=== PATIENT | female | born 1990 | race Caucasian/White ===

== ENCOUNTER 2020-07-30 14:34 | Emergency (ER) | payer OTHER, SELFPAY ==
[2020-07-30 14:57] VITALS: BP 131/89; PULSE 102; RESP 20; TEMP 36.7; O2SAT 100
--- NOTE | 2020-07-30 15:28 | ED.GENADULT ---
HPI - General Adult General Chief complaint: Upper Respiratory Infection Stated complaint: sinus congestion Time Seen by Provider: 07/30/20 15:18 Source: patient and RN notes reviewed Mode of arrival: ambulatory Limitations: no limitations History of Present Illness HPI narrative: 30-year-old male presents with complaints of upper respiratory infection, facial congestion, and facial pain for the past 7 days. Symptoms improved for 2-3 days and flared up over the pass 24 hours with increase congestion and bilateral otalgia. [place] cold and flu today with little relief. History of Allergies and take Singulair daily. No facial swelling. Denies cough. Nasal congestion and rhinorrhea. No chest pain or shortness of breath. No exacerbating factors. Denies fever or chills. Denies nausea, vomiting, and abdominal pain. Tolerating po intake well. LMP 8 days ago. Remains active. The patient reports she have not been diagnosed with COVID-19. The patient reports she is not waiting for the results of a COVID-19 lab test. The patient reports she do not have fever, chills, weakness, or fatigue. The patient reports she do not have a new or worsening cough or shortness of breath. Denies chest pain. The patient reports she do not have any loss of taste or diarrhea. Denies recent traveling. Denies concerns for COVID-19 or exposures been home with limited outdoor exposure except for essential household needs, work, and return home. At this time, patient is not suspected of having COVID-19. Some parts of this dictation were generated by voice recognition software and may contain typographical and/or grammatical inaccuracies. Related Data Home Medications Medication Instructions Recorded Confirmed drospirenone-ethinyl estradiol 1 tablet PO DAILY 07/30/20 07/30/20 [Ale] montelukast 10 mg PO DAILY 07/30/20 07/30/20 Allergies Allergy/AdvReac Type Severity Reaction Status Date / Time No Known Allergies Allergy Verified 07/30/20 14:56 Review of Systems Review of Systems: Narrative: CONSTITUTIONAL: Denies fever, chills, sweats. EYES: Denies visual changes, redness, discharge. ENT: Complains of rhinorrhea, congestion, sore throat, otalgia. CARDIOVASCULAR: Denies chest pain, palpitations, edema. RESPIRATORY: Denies dyspnea, wheezing, cough. GASTROINTESTINAL: Denies abdominal pain, nausea, vomiting, diarrhea. GENITOURINARY: Denies dysuria, hematuria, abnormal discharge. SKIN: Denies rash or itching. MUSCULOSKELETAL: Denies acute back pain, joint pain, or myalgia. NEUROLOGIC: Denies numbness or focal weakness. PSYCHIATRIC: Denies anxiety or depression. All systems reviewed & are unremarkable except as noted in HPI and below. [facility] Past Medical History Medical History (Updated 07/31/20 @ 11:46 by FRANCHESCA Morrison) Allergies Hypercholesteremia Right shoulder pain Surgical History Surgical History (Updated 07/31/20 @ 11:46 by FRANCHESCA Morrison) History of arthroscopic surgery of shoulder RT History of exploratory laparotomy Family History Family History (Updated 07/30/20 @ 17:57 by FRANCHESCA Morrison) Father Hypertension Mother Alive and well Social History Social History (Updated 07/30/20 @ 18:08 by FRANCHESCA Morrison) Smoking status: Never smoker Tobacco type: cigarettes Second hand tobacco smoke exposure: No Alcohol intake: current Substance use: never Living arrangements: with family Occupation/Education: occupation Gender identity (if verbalized by the patient): Female Comments At time of signature, agree with nurse past medical, surgical, social, and family history. There is relevant patient's past medical history pertinent to the presenting complaint, no relevant family history pertinent to the presenting complaint. Exam Narrative: Exam Narrative: GENERAL: This is a well-nourished, well-developed patient, in no apparent distress. Talks in full s
== END 2020-07-30 15:45 | disposition home or self-care (01) ==
PROVIDERS: Emergency Provider Nurse Practitioner Family
DX: J01.90 Acute sinusitis, unspecified (principal); H66.92 Otitis media, unspecified, left ear; E78.00 Pure hypercholesterolemia, unspecified
CPT/HCPCS: 87081; 87804; 87880; 99203; G0463

== ENCOUNTER 2020-07-31 06:59 | Outpatient (NON) | payer OTHER, SELFPAY ==
[2020-07-31 18:17] LABS: SARS-CoV-2 RNA PCR Negative
== END 2020-07-31 07:00 ==
PROVIDERS: Visit Provider Nurse Practitioner Family
DX: Z20.828 Contact with and (suspected) exposure to other viral communicable diseases (principal); J01.90 Acute sinusitis, unspecified
CPT/HCPCS: 87635; C9803; U0003

== ENCOUNTER 2021-03-02 10:33 | Emergency (ER) | payer OTHER, SELFPAY ==
[2021-03-02 10:35] VITALS: BP 132/81; PULSE 99; RESP 16; TEMP 36.6; O2SAT 98
--- NOTE | 2021-03-02 11:06 | ED.URI ---
HPI - URI/Sore Throat General Chief Complaint: Upper Respiratory Infection Stated Complaint: sinus and ear pain Time Seen by Provider: 03/02/21 11:06 Source: patient, RN notes reviewed and old records reviewed Mode of arrival: ambulatory Limitations: no limitations History of Present Illness HPI Narrative: 31-year-old female who presents to [facility] with complaints of 1-1/2-week duration of sinus pressure. bilateral ear pain,yellow nasal drainage,and cough. Patient states that she has been taking singulair as prescribed, and also [place] cold and sinus medication, Flonase, and Claritin.. She states that she has history of seasonal allergies and also sinus infections. She reportsthat she has had no known fevers but has experienced some chills, denies any shortness of breath or any wheezing with respirations even and nonlabored at rest. MD elicited complaint: cough, rhinorrhea, nasal congestion, sinus pain and other (ear pain) Pertinent past history: sinusitis Onset (ago): week(s) (1 1/2 weeks) Consistency: progressively worsening Severity: moderate Pain scale (0-10): 4 Description of mucous: yellow Able to tolerate fluids by mouth: Yes Treatments prior to arrival: cold medicine and other (singulair) Related Data Home Medications Medication Instructions Recorded Confirmed drospirenone-ethinyl estradiol 1 tablet PO DAILY 07/30/20 03/02/21 [Ale] montelukast 10 mg PO DAILY 07/30/20 03/02/21 ascorbate calcium (vitamin C) 500 mg PO DAILY 03/02/21 03/02/21 calcium citrate 150 mg PO DAILY 03/02/21 03/02/21 glucos sul [id number] 1 cap PO DAILY 03/02/21 03/02/21 [Glucosamine Chondroitin] multivitamin [One A Day Vitamin] 1 tablet PO DAILY 03/02/21 03/02/21 Allergies Allergy/AdvReac Type Severity Reaction Status Date / Time No Known Allergies Allergy Verified 03/02/21 10:41 Review of Systems Review of Systems: Narrative: CONSTITUTIONAL: Unknown if fever,positive chills, or sweats. EYES: Denies visual changes, redness, or discharge. ENT: Positive rhinorrhea, congestion,no sore throat, positive for bilateral otalgia. CARDIOVASCULAR: Denies chest pain, palpitations, or edema. RESPIRATORY: Positive for cough no dyspnea. GASTROINTESTINAL: Denies abdominal pain, nausea, vomiting, or diarrhea. GENITOURINARY: Denies dysuria or hematuria. SKIN: Denies rash or itching. MUSCULOSKELETAL: Denies back pain, no joint pain, or myalgia. NEUROLOGIC:positive frontal headache,no numbness, or weakness. PSYCHIATRIC: Denies anxiety or depression. All systems reviewed & are unremarkable except as noted in HPI and below PMFSH Past Medical History Medical History (Updated 03/04/21 @ 20:30 by Leslie Aviles NP) Allergies Right shoulder pain Sinusitis Surgical History Surgical History (Updated 03/04/21 @ 20:18 by Leslie Aviles NP) History of arthroscopic surgery of shoulder RT History of exploratory laparotomy S/P wisdom tooth extraction Family History Family History (Updated 03/04/21 @ 20:27 by Leslie Aviles NP) Father Hypertension Malignant neoplasm of prostate Heart disease Mother Alive and well Breast cancer Grandparent Hypertension Heart disease Social History Social History Smoking status: Never smoker Tobacco type: cigarettes Second hand tobacco smoke exposure: No Alcohol intake: current Substance use: never Gender identity (if verbalized by the patient): Female Comments At time of signature agree with nursing documentation of past social, surgical, medical and family history. There is no relevant family history pertinent to presenting complaint. Exam Narrative: Exam Narrative: GENERAL: Well-appearing, well-nourished, and in no acute distress. HEAD: Normocephalic, atraumatic. EYES: PERRLA and EOMI. ENT: Nares red and swollen with yellow rhinorrhea no epistaxis. Mucous membranes moist.TM's normal with dull light
== END 2021-03-02 11:20 | disposition home or self-care (01) ==
PROVIDERS: Emergency Provider Registered Nurse
DX: J01.40 Acute pansinusitis, unspecified (principal)
CPT/HCPCS: 99213; G0463

== ENCOUNTER 2024-09-22 10:21 | Emergency (ER) | payer OTHER, SELFPAY ==
--- NOTE | 2024-09-22 10:33 | ED.URI ---
HPI - URI/Sore Throat General Chief Complaint: Upper Respiratory Infection Stated Complaint: SINUS/SORE THROAT/SWELLING History of Present Illness HPI Narrative: 34-year-old female presented for complaint of nasal congestion and drainage, sore throat and cough for over 10 days. Denies difficulty maintaining secretions. Denies shortness of breath, wheezing, nausea, vomiting, diarrhea or lethargy. Taking NyQuil in addition to her daily antihistamines and nasal spray. Related Data Home Medications Medication Instructions Recorded Confirmed drospirenone 3 mg-ethinyl 1 tablet PO DAILY 07/30/20 09/22/24 estradiol 0.03 mg tablet (Ale) montelukast 10 mg tablet 10 mg PO DAILY 07/30/20 09/22/24 calcium citrate 150 mg capsule 150 mg PO DAILY 03/02/21 09/22/24 multivitamin 1 tablet PO DAILY 03/02/21 09/22/24 dextroamphetamine-amphetamine ER 10 mg PO DIRECTED 09/22/24 09/22/24 10 mg 24hr capsule,extend release Allergies Allergy/AdvReac Type Severity Reaction Status Date / Time No Known Allergies Allergy Verified 09/22/24 10:28 Review of Systems Review of Systems: CONSTITUTIONAL: Denies body aches, fever, chills, or sweats. EYES: Denies visual changes, redness, or discharge. ENT: reports rhinorrhea, congestion, sore throat CARDIOVASCULAR: Denies chest pain, palpitations, or edema. RESPIRATORY: reports cough Denies dyspnea. GASTROINTESTINAL: Denies abdominal pain, nausea, vomiting, or diarrhea. SKIN: Denies rash NEUROLOGIC: Denies headache PMFSH Past Medical History Medical History Allergies Right shoulder pain Sinusitis Surgical History Surgical History History of arthroscopic surgery of shoulder RT History of exploratory laparotomy S/P wisdom tooth extraction Family History Family History Father Hypertension Malignant neoplasm of prostate Heart disease Mother Alive and well Breast cancer Grandparent Hypertension Heart disease Social History Social History Smoking status: Never smoker Tobacco type: cigarettes Second hand tobacco smoke exposure: No Alcohol intake: current Substance use: never Living arrangements: with family Occupation/Education: occupation Gender identity (if verbalized by the patient): Female Exam Narrative: GENERAL: mildly Ill-appearing, no acute distress. EYES: conjunctivae clear ENT: Mucous membranes moist. TMs pearly cedillo with normal light reflex and clear effusion bilaterally; no tragal tenderness. Oropharynx not erythematous without lesions. Tonsils enlarged 1+ and without exudate. No drooling, no hoarseness, no trismus, uvula midline. No tripod positioning, hot potato voice, or soft palate swelling. NECK: Supple. No lymphadenopathy CHEST: Clear to auscultation, breath sounds equal. No respiratory distress, speaks in full sentences. HEART: Regular rate and rhythm. No murmur heard. SKIN: Warm, dry, no rash. NEURO: Alert and oriented x3. Course Course Emergency Course: Patient is aware of diagnosis, understands and agrees to treatment plan. Anticipatory guidance given. Patient agrees to follow-up as directed and is aware of reasons to seek care at the emergency department. Portions of this record may have been created with voice recognition software Level of Care: Express Care Visit MDM - URI/Sore Throat MDM Narrative Medical decision making narrative: neg strep result reviewed with pt. Treat for sinusitis Advise supportive treatments. Patient is appropriate for outpatient treatment and follow-up. Differential Diagnosis Differential diagnosis: Likely upper respiratory infection, viral infection and pharyngitis Discharge Plan Discharge Clinical Impression: Sinusitis Patient Disposition: Home, Self-Care Condition: Stable Instructions: Antibiotic Form, Sinusitis (ED) Additional Instructions: Rapid strep swab was negative today You will be notified in a few days if the culture comes back positive for strep if symptoms are due to a viral illness, it is not treated with antibiotics. Viral symptoms can be present for up to 10-14 days. Recommendations: Flonase spray and Zyrtec for sinus congestion Cough syrup may cause drowsiness; avoid driving or take it at night time. Tylenol every 8 hours as needed for pain/fever Soft foods, cool liquids, warm tea. Gargle with warm saltwater twice a day. Chloraseptic spray and throat lozenges. Rest and stay hydrated. --Follow up with your PCP --Go to the ER immediately if you cannot swallow your saliva, trouble breathing/wheezing, throat swelling, pain is persistent and severe Prescriptions: New amoxicillin-pot clavulanate 875-125 mg tablet 1 tablet PO Q12H 7 Days Qty: 14 0RF No Action multivitamin [One A Day Vitamin] Tablet 1 tablet PO DAILY calcium citrate 150 mg Capsule 150 mg PO DAILY montelukast 10 mg Tablet 10 mg PO DAILY drospirenone-ethinyl estradiol [Ale] 3-0.03 mg Tablet 1 tablet PO DAILY fluticasone propionate [Allergy Relief (fluticasone)] 50 mcg/actuation spray,suspension 1 spray NASAL BID Qty: 16 0RF Rx Instructions: administer into each nostril loratadine [Claritin] 10 mg tablet 10 mg PO DAILY 60 Days Qty: 60 0RF dextroamphetamine-amphetamine 10 mg capsule,extended release 24hr 10 mg PO DIRECTED Follow-up/Referrals: Naty,Reynaldo [Other]
[2024-09-22 10:38] VITALS: BP 123/89; PULSE 101; RESP 16; TEMP 36.6; O2SAT 99
[2024-09-22 10:54] LABS: EDSTREPNEGPOS1 Negative (Negative)
== END 2024-09-22 10:59 | disposition home or self-care (01) ==
PROVIDERS: Emergency Provider Nurse Practitioner Family
DX: J32.9 Chronic sinusitis, unspecified (principal)
CPT/HCPCS: 87081; 87880; 99213; G0463

== ENCOUNTER 2025-07-17 10:01 | Emergency (ER) | payer OTHER, SELFPAY ==
[2025-07-17 10:05] VITALS: BP 147/99; PULSE 99; RESP 18; TEMP 36.1; O2SAT 98
--- OUTSIDE RECORDS SUMMARY | 2025-07-17 10:05 | XMS_ITS | Encounter Summary ---
Author Organization [facility] Address [address] [place] [address] Care Team Providers Care Planning Official Name Role Phone Eren Castillo MD Primary Care Provider [phone] Encounter Details Date Type Department Care Team (Late st Contact Info) Description 06/19/2004 Outpatient Historical [facility] Pediatrics [address] [place] [address] Eren Castillo MD [address] [facility] [address], [place] [address] Social History Tobacco Use Types Packs/Day Years Used Date Smoking Tobacco: Never Assessed Comments Unknown Sex and Gender Information Value Date Recorded Sex Assigned at Not on file 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
--- OUTSIDE RECORDS SUMMARY | 2025-07-17 10:05 | XMS_ITS | Encounter Summary ---
Author Organization [facility] Address [address] [place] [address] Care Team Providers Care Director Of Oncology Name Role Phone Eren Castillo MD Primary Care Provider [phone] Encounter Details Date Type Department Care Team (Late st Contact Info) Description 09/17/2003 Outpatient Historical [facility] Pediatrics [address] [place] [address] Gautam Evans MD [address] [place] [address] Social History Tobacco Use Types Packs/Day Years Used Date Smoking Tobacco: Never Assessed Comments Unknown Sex and Gender Information Value Date Recorded Sex Assigned at Not on file 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
--- OUTSIDE RECORDS SUMMARY | 2025-07-17 10:05 | XMS_ITS | Encounter Summary ---
Author Organization [facility] Address [address] [place] [address] Care Team Providers Care Oil Heater Installer Name Role Phone Eren Castillo MD Primary Care Provider [phone] Encounter Details Date Type Department Care Team (Late st Contact Info) Description 12/18/2006 Outpatient Historical [facility] Pediatrics [address] [place] [address] Eren Castillo MD [address] [facility] [address], [place] [address] Social History Tobacco Use Types Packs/Day Years Used Date Smoking Tobacco: Never Assessed Comments Unknown Sex and Gender Information Value Date Recorded Sex Assigned at Not on file 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
--- OUTSIDE RECORDS SUMMARY | 2025-07-17 10:05 | XMS_ITS | Encounter Summary ---
Author Organization [facility] Address [address] [place] [address] Care Team Providers Care Android Ios Developer Name Role Phone Eren Castillo MD Primary Care Provider [phone] Encounter Details Date Type Department Care Team (Late st Contact Info) Description 05/07/2001 Outpatient Historical [facility] Pediatrics [address] [place] [address] Gautam Evans MD [address] [place] [address] Social History Tobacco Use Types Packs/Day Years Used Date Smoking Tobacco: Never Assessed Comments Unknown Sex and Gender Information Value Date Recorded Sex Assigned at Not on file 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
--- OUTSIDE RECORDS SUMMARY | 2025-07-17 10:05 | XMS_ITS | Encounter Summary ---
Author Organization [facility] Address [address] [place] [address] Care Team Providers Care Silk Screen Printer Name Role Phone Eren Castillo MD Primary Care Provider [phone] Encounter Details Date Type Department Care Team (Late st Contact Info) Description 06/11/2005 Outpatient Historical [facility] Pediatrics [address] [place] [address] Eren Castillo MD [address] [facility] [address] [address] Social History Tobacco Use Types Packs/Day Years Used Date Smoking Tobacco: Never Assessed Comments Unknown Sex and Gender Information Value Date Recorded Sex Assigned at Not on file 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
--- OUTSIDE RECORDS SUMMARY | 2025-07-17 10:05 | XMS_ITS | Encounter Summary ---
Author Organization [facility] Address [address] [place] [address] Care Team Providers Care Gum Scoring Machine Operator Name Role Phone Eren Castillo MD Primary Care Provider [phone] Encounter Details Date Type Department Care Team (Late st Contact Info) Description 10/09/2006 Outpatient Historical [facility] Pediatrics [address] [place] [address] Eren Castillo MD [address] 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 [address] [place] [address] PCP - General 04/27/07 documented as of this encounter
--- OUTSIDE RECORDS SUMMARY | 2025-07-17 10:05 | XMS_ITS | Encounter Summary ---
Author Organization [facility] Address [address] [place] [address] Care Team Providers Care Dipper Fish Name Role Phone Eren Castillo MD Primary Care Provider [phone] Encounter Details Date Type Department Care Team (Late st Contact Info) Description 05/01/2007 Outpatient Historical [facility] Pediatrics [address] [place] [address] Eren Castillo MD [address] [facility] [address] [address] Social History Tobacco Use Types Packs/Day Years Used Date Smoking Tobacco: Never Assessed Comments Unknown Sex and Gender Information Value Date Recorded Sex Assigned at Not on file 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
--- OUTSIDE RECORDS SUMMARY | 2025-07-17 10:05 | XMS_ITS | Encounter Summary ---
Author Organization [facility] Address [address] [place] [address] Care Team Providers Care Jute Bag Cutting Machine Operator Name Role Phone Eren Castillo MD Primary Care Provider [phone] Encounter Details Date Type Department Care Team (Late st Contact Info) Description 04/27/[address] 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
--- OUTSIDE RECORDS SUMMARY | 2025-07-17 10:05 | XMS_ITS | Encounter Summary ---
Author Organization [facility] Health Address [address] [place] [address] Care Team Providers Care Bridge Painter Name Role Phone Unavailable Primary Care Provider Unavailabl e Prior Encounters Date Type Department Care Team Description 05/31/2025 10:00 AM [facility] Office Visit [facility] [address], [address] [place] [address] Kori Cedeño DDS [place] 05/20/2025 8:30 AM [facility] Office Visit [facility] [address], [address] [place] [phone] Logan Jauregui, DMD 04/21/2025 10:45 AM [facility] Office Visit [facility] [address], [address] [place] [phone] Logan Jauregui, DMD 04/14/2025 Travel 04/14/2025 11:00 AM [facility] Office Visit [facility] [address], [address] [place] [phone] Logan Jauregui, DMD 04/14/2025 8:00 AM [facility] Office Visit [facility] [address], [address] [place] [phone] Andrés Cosby DDS Encounter for dental examination and cleaning without abnormal findings (Primary Dx) 04/14/2025 8:00 AM [facility] Office Visit [facility] [address], [address] [place] [address] 01/12/2025 Travel 01/12/2025 5:00 PM MST Office Visit [facility] [address], [address] [place] [address] Darlin Caballero, [facility] 08/10/2024 3:30 PM MST Office Visit [facility] [address], [address] [place] [address] Elvia Xiao DDS Dental caries, unspecified (Primary Dx) 07/27/2024 9:00 AM [facility] Office Visit [facility] [address], [address] [place] [address] Elvia Xiao DDS Dental caries, unspecified (Primary Dx); Encounter for dental examination and cleaning without abnormal findings 07/27/2024 9:00 AM [facility] Office Visit [facility] [address], [address] [place] [address] Fabiana Varghese, [facility] 01/12/2024 Travel 01/12/2024 9:00 AM [facility] Office Visit [facility] [address], [address] [place] [address] Elvia Xiao DDS Encounter for dental examination and cleaning without abnormal findings (Primary Dx) 01/12/2024 8:00 AM MST Office Visit [facility] [address], [address] [place] [address] Fabiana Varghese, [facility] 07/14/2023 8:00 AM MST Office Visit [facility] [address], [address] [place] [address] Andrés Cosby DDS 07/14/2023 8:00 AM MST Office Visit [facility] [address], [address] [place] [address] Fabiana Varghese, [facility] 12/16/2022 Travel 12/16/2022 8:30 AM MST Office Visit [facility] [address], [address] [place] [address] Elvia Xiao, [facility] 12/16/2022 8:30 AM MST Office Visit [facility] [address], [address] [place] [address] Fabiana Varghese, [facility] 06/10/2022 Travel 06/10/2022 8:30 AM MST Office Visit [facility] [address], [address] [place] [address] Sagar Monreal, DD 06/10/2022 8:30 AM MST Office Visit [facility] [address], [address] [place] [address] Teresa Mariee, [facility] 12/10/2021 Travel 12/10/2021 8:30 AM MST Office Visit [facility] [address], [address] [place] [address] Sagar Monreal, [facility] 12/10/2021 8:00 AM MST Office Visit [facility] [address], [address] [place] [address] Darlin Caballero, [facility] 06/11/2021 Travel 06/11/2021 8:00 AM MST Office Visit [facility] [address], [address] [place] [address] Sagar Monreal, DD 06/11/2021 8:00 AM MST Office Visit [facility] [address], [address] [place] [address] Darlin Caballero, [facility] 12/11/2020 1:00 PM MST Office Visit [facility] [address], [address] [place] [address] Darlin Caballero, [facility] 12/11/2020 Travel 12/11/2020 12:00 PM [facility] Office Visit [facility] [address], [address] [place] [phone] Elvia Xiao DDS 11/08/2019 Converted CPS Chart Documents [facility] [address] [place] [id number] <No scans attached> 11/08/2019 Converted 13x Documents [facility] [address] [place] [id number] <No scans attached> 11/08/2019 Converted CPS Chart Documents [facility] [address], [address] [place] [phone] <No scans attached> 11/08/2019 Converted 13x Documents [facility] [address], [address] [place] [phone] <No scans attached> Last Filed Vital Signs Vital Sign Reading Time Taken Comments Blood Pressure 123/79 04/21/2025 10:44 AM [facility] Pulse 110 04/21/2025 10:44 AM [facility] Temperature 36.2 C (97.2 F) 12/10/2021 8:19 AM [facility] Respiratory Rate - - Oxygen Saturation - - Inhaled Oxygen Concentration - - Weight 113 kg (250 lb) 12/10/2021 8:19 AM [facility] Height 182.9 cm (6') 12/10/2021 8:19 AM [facility] Body Mass Index 33.91 12/10/2021 8:19 AM [facility] Plan of Treatment Upcoming Encounters Date Type Department Care Team (Late st Contact Info) Description 07/27/2025 9:00 AM [facility] Office Visit [facility] [address], [address] [place] [address] Kori Cedeño DDS [place] [address] [place] [address] 08/18/2025 8:00 AM [facility] Office Visit [facility] [address], [address] [place] [address] Janis Louis Luisainge [place], [facility] [address] [facility] [address] [place] [address] Procedures Procedure Name Priority Date/Time Associated Diagnosis Comments ORAL HYGIENE INSTRUCTIONS Routine 2024 10:00 AM [facility] SPARK ADVANCED - DUAL ARCH Routine 05/31/2025 10:00 AM [facility] CASE PRESENTATION, DETAILED AND EXTENSIVE TREATMENT PLANNING Routine 05/31/2025 10:00 AM [facility] ORAL-B ESSENTIAL KIT Routine 05/31/2025 10:00 AM [facility] COMPREHENSIVE ORTHODONTIC TREATMENT OF THE ADULT DENTITION - 24M Routine 05/31/2025 10:00 AM [facility] 2D ORAL/FACIAL PHOTOGRAPHIC IMAGE OBTAINED INTRA-ORALLY OR EXTRA-ORALLY - INITIAL ORTHODONTIC VISIT Routine 05/31/2025 10:00 AM [facility] DIAGNOSTIC CASTS - INITIAL ORTHODONTIC VISIT Routine 05/31/2025 10:00 AM [facility] 2D CEPHALOMETRIC RADIOGRAPHIC IMAGE ACQUISITION, MEASUREMENT AND ANALYSIS - INITIAL ORTHODONTIC VISIT Routine 05/31/2025 10:00 AM [facility] PANORAMIC RADIOGRAPHIC IMAGE - INITIAL ORTHODONTIC VISIT Routine 05/31/2025 10:00 AM [facility] ORTHO CONSULT Routine 05/31/2025 10:00 AM [facility] RE-EVALUATION POST-OPERATIVE OFFICE VISIT Routine 05/20/2025 8:30 AM [facility] LIMITED ORAL EVALUATION - PROBLEM FOCUSED Routine 04/21/2025 10:45 AM [facility] 3 EXTRACTION, ERUPTED TOOTH REQUIRING REMOVAL OF BONE AND/OR SECTIONING OF TOOTH Routine 04/21/2025 10:45 AM [facility] 3 GUIDED TISSUE REGENERATION, NATURAL TEETH - RESORBABLE BARRIER, PER SITE Routine 04/21/2025 10:45 AM [facility] 3 BONE REPLACEMENT GRAFT FOR RIDGE PRESERVATION - PER SITE - MAXILLARY Routine 04/21/2025 10:45 AM [facility] PERIO CONSULT Routine 04/14/2025 11:00 AM [facility] CT IMAGE CAPTURE WITH FIELD OF VIEW OF BOTH JAWS; WITH OR WITHOUT CRANIUM Routine 04/14/2025 8:00 AM [facility] INTRAORAL PHOTO Routine 04/14/2025 8:00 AM [facility] INTRAORAL PHOTO Routine 04/14/2025 8:00 AM MST INTRAORAL PHOTO Routine 04/14/2025 8:00 AM [facility] INTRAORAL PHOTO Routine 04/14/2025 8:00 AM [facility] BITEWINGS - FOUR RADIOGRAPHIC IMAGES Routine 04/14/2025 8:00 AM [facility] PERIODIC ORAL EVALUATION - ESTABLISHED PATIENT Routine 04/14/2025 8:00 AM MST Encounter for dental examination and cleaning without abnormal findings ORAL HYGIENE INSTRUCTIONS Routine 2024 8:00 AM MST TOPICAL APPLICATION OF FLUORIDE VARNISH Routine 04/14/2025 8:00 AM MST GAYATRI DECON Routine 04/14/2025 8:00 AM MST PERIO MAINTENANCE Routine 04/14/2025 8:0 0 AM MST LR ANTIBACT IRR/QUAD Routine 04/14/2025 8:00 AM MST LL ANTIBACT IRR/QUAD Routine 04/14/2025 8:00 AM MST UR ANTIBACT IRR/QUAD Routine 04/14/2025 8:00 AM MST UL ANTIBACT IRR/QUAD Routine 04/14/2025 8:00 AM [facility] ORAL HYGIENE INSTRUCTIONS Routine 2024 5:00 PM MST TOPICAL APPLICATION OF FLUORIDE VARNISH Routine 01/12/2025 5:00 PM MST GAYATRI DECON Routine 01/12/2025 5:00 PM MST PERIO MAINTENANCE Routine 01/12/2025 5:0 0 PM MST LR ANTIBACT IRR/QUAD Routine 01/12/2025 5:00 PM MST UR ANTIBACT IRR/QUAD Routine 01/12/2025 5:00 PM MST UL ANTIBACT IRR/QUAD Routine 01/12/2025 5:00 PM MST LL ANTIBACT IRR/QUAD Routine 01/12/2025 5:00 PM MST 15 APPLICATION OF DESENSITIZING MEDICAMENT Routine 08/10/2024 3:30 PM MST 15 LO RESIN-BASED COMPOSITE - TWO SURFACES, POSTERIOR Routine 08/10/2024 3:30 PM MST Dental caries, unspecified 2 LO RESIN-BASED COMPOSITE - TWO SURFACES, POSTERIOR Routine 08/10/2024 3:30 PM MST Dental caries, unspecified 2 APPLICATION OF DESENSITIZING MEDICAMENT Routine 08/10/2024 3:30 PM MST INTRAORAL PHOTO Routine 07/27/2024 9:00 AM MST INTRAORAL PHOTO Routine 07/27/2024 9:00 AM MST INTRAORAL PHOTO Routine 07/27/2024 9:00 AM MST INTRAORAL PHOTO Routine 07/27/2024 9:00 AM [facility] BITEWINGS - FOUR RADIOGRAPHIC IMAGES Routine 07/27/2024 9:00 AM [facility] ADDITIONAL X-RAY Routine 07/27/2024 9:00 AM MST ADDITIONAL X-RAY Routine 07/27/2024 9:00 AM MST ADDITIONAL X-RAY Routine 07/27/2024 9:00 AM MST ADDITIONAL X-RAY Routine 07/27/2024 9:00 AM MST ADDITIONAL X-RAY Routine 07/27/2024 9:00 AM [facility] SINGLE X-RAY Routine 07/27/2024 9:00 AM [facility] PERIODIC ORAL EVALUATION - ESTABLISHED PATIENT Routine 07/27/2024 9:00 AM [facility] Encounter for dental examination and cleaning without abnormal findings ORAL HYGIENE INSTRUCTIONS Routine 2023 9:00 AM MST TOPICAL APPLICATION OF FLUORIDE VARNISH Routine 07/27/2024 9:00 AM MST GAYATRI DECON Routine 07/27/2024 9:00 AM MST PERIO MAINTENANCE Routine 07/27/2024 9:0 0 AM MST LR ANTIBACT IRR/QUAD Routine 07/27/2024 9:00 AM MST UR ANTIBACT IRR/QUAD Routine 07/27/2024 9:00 AM MST LL ANTIBACT IRR/QUAD Routine 07/27/2024 9:00 AM MST UL ANTIBACT IRR/QUAD Routine 07/27/2024 9:00 AM [facility] INTRAORAL PHOTO Routine 01/12/2024 9:00 AM MST INTRAORAL PHOTO Routine 01/12/2024 9:00 AM MST INTRAORAL PHOTO Routine 01/12/2024 9:00 AM MST INTRAORAL PHOTO Routine 01/12/2024 9:00 AM [facility] BITEWINGS - FOUR RADIOGRAPHIC IMAGES Routine 01/12/2024 9:00 AM [facility] PERIODIC ORAL EVALUATION - ESTABLISHED PATIENT Routine 01/12/2024 9:00 AM [facility] Encounter for dental examination and cleaning without abnormal findings ORAL HYGIENE INSTRUCTIONS Routine 2023 8:00 AM MST TOPICAL APPLICATION OF FLUORIDE VARNISH Routine 01/12/2024 8:00 AM MST GAYATRI DECON Routine 01/12/2024 8:00 AM MST LR ANTIBACT IRR/QUAD Routine 01/12/2024 8:00 AM MST PERIO MAINTENANCE Routine 01/12/2024 8:0 0 AM MST UR ANTIBACT IRR/QUAD Routine 01/12/2024 8:00 AM MST UL ANTIBACT IRR/QUAD Routine 01/12/2024 8:00 AM MST LL ANTIBACT IRR/QUAD Routine 01/12/2024 8:00 AM MST BITEWINGS - FOUR RADIOGRAPHIC IMAGES Routine 07/14/2023 8:00 AM MST ADDITIONAL X-RAY Routine 07/14/2023 8:00 AM MST ADDITIONAL X-RAY Routine 07/14/2023 8:00 AM MST ADDITIONAL X-RAY Routine 07/14/2023 8:00 AM MST ADDITIONAL X-RAY Routine 07/14/2023 8:00 AM MST ADDITIONAL X-RAY Routine 07/14/2023 8:00 AM [facility] SINGLE X-RAY Routine 07/14/2023 8:00 AM [facility] PERIODIC ORAL EVALUATION - ESTABLISHED PATIENT Routine 07/14/2023 8:00 AM [facility] ORAL HYGIENE INSTRUCTIONS Routine 2022 8:00 AM MST TOPICAL APPLICATION OF FLUORIDE VARNISH Routine 07/14/2023 8:00 AM MST PERIO MAINTENANCE Routine 07/14/2023 8:0 0 AM MST LR ANTIBACT IRR/QUAD Routine 07/14/2023 8:00 AM MST UR ANTIBACT IRR/QUAD Routine 07/14/2023 8:00 AM MST LL ANTIBACT IRR/QUAD Routine 07/14/2023 8:00 AM [facility] UL ANTIBACT IRR/QUAD Routine 07/14/2023 8:00 AM [facility] [place] [address] CAPTURE AND INTERPRETATION WITH FIELD OF VIEW OF BOTH JAWS; WITH OR WITHOUT CRANIUM Routine 12/16/2022 8:30 AM [facility] PANORAMIC RADIOGRAPHIC IMAGE Routine 12/16/2022 8:30 AM [facility] BITEWING - SINGLE RADIOGRAPHIC IMAGE Routine 12/16/2022 8:30 AM [facility] PERIODIC ORAL EVALUATION - ESTABLISHED PATIENT Routine 12/16/2022 8:30 AM MST ORAL HYGIENE INSTRUCTIONS Routine 2022 8:30 AM MST TOPICAL APPLICATION OF FLUORIDE VARNISH Routine 12/16/2022 8:30 AM MST PERIO MAINTENANCE Routine 12/16/2022 8:3 0 AM MST LR ANTIBACT IRR/QUAD Routine 12/16/2022 8:30 AM MST LL ANTIBACT IRR/QUAD Routine 12/16/2022 8:30 AM MST UR ANTIBACT IRR/QUAD Routine 12/16/2022 8:30 AM MST UL ANTIBACT IRR/QUAD Routine 12/16/2022 8:30 AM MST ORAL HYGIENE INSTRUCTIONS Routine 2021 8:30 AM MST TOPICAL APPLICATION OF FLUORIDE VARNISH Routine 06/10/2022 8:30 AM MST PERIO MAINTENANCE Routine 06/10/2022 8:3 0 AM MST LR ANTIBACT IRR/QUAD Routine 06/10/2022 8:30 AM MST UR ANTIBACT IRR/QUAD Routine 06/10/2022 8:30 AM MST LL ANTIBACT IRR/QUAD Routine 06/10/2022 8:30 AM MST UL ANTIBACT IRR/QUAD Routine 06/10/2022 8:30 AM MST 14 D ARESTIN Routine 06/10/2022 8:30 AM MST 3 D ARESTIN Routine 06/10/2022 8:30 AM MST INTRAORAL PHOTO Routine 06/10/2022 8:30 AM MST INTRAORAL PHOTO Routine 06/10/2022 8:30 AM MST INTRAORAL PHOTO Routine 06/10/2022 8:30 AM MST INTRAORAL PHOTO Routine 06/10/2022 8:30 AM MST BITEWINGS - FOUR RADIOGRAPHIC IMAGES Routine 06/10/2022 8:30 AM MST PERIODIC ORAL EVALUATION - ESTABLISHED PATIENT Routine 06/10/2022 8:30 AM MST ADDITIONAL X-RAY Routine 12/10/2021 8:30 AM MST PANORAMIC RADIOGRAPHIC IMAGE Routine 12/10/2021 8:30 AM MST INTRAORAL PHOTO Routine 12/10/2021 8:30 AM MST INTRAORAL PHOTO Routine 12/10/2021 8:30 AM MST INTRAORAL PHOTO Routine 12/10/2021 8:30 AM MST INTRAORAL PHOTO Routine 12/10/2021 8:30 AM MST BITEWINGS - FOUR RADIOGRAPHIC IMAGES Routine 12/10/2021 8:30 AM MST ADDITIONAL X-RAY Routine 12/10/2021 8:30 AM MST ADDITIONAL X-RAY Routine 12/10/2021 8:30 AM MST ADDITIONAL X-RAY Routine 12/10/2021 8:30 AM MST ADDITIONAL X-RAY Routine 12/10/2021 8:30 AM MST ADDITIONAL X-RAY Routine 12/10/2021 8:30 AM MST SINGLE X-RAY Routine 12/10/2021 8:30 AM MST PERIODIC ORAL EVALUATION - ESTABLISHED PATIENT Routine 12/10/2021 8:30 AM MST 18 M ARESTIN Routine 12/10/2021 8:00 AM MST 3 M ARESTIN Routine 12/10/2021 8:00 AM MST ORAL HYGIENE INSTRUCTIONS Routine 2021 8:00 AM MST TOPICAL APPLICATION OF FLUORIDE VARNISH Routine 12/10/2021 8:00 AM MST PERIO MAINTENANCE Routine 12/10/2021 8:0 0 AM MST LR ANTIBACT IRR/QUAD Routine 12/10/2021 8:00 AM MST UR ANTIBACT IRR/QUAD Routine 12/10/2021 8:00 AM MST LL ANTIBACT IRR/QUAD Routine 12/10/2021 8:00 AM MST UL ANTIBACT IRR/QUAD Routine 12/10/2021 8:00 AM MST 3 M ARESTIN Routine 06/11/2021 8:00 AM MST 15 D ARESTIN Routine 06/11/2021 8:00 AM MST ORAL HYGIENE INSTRUCTIONS Routine 2020 8:00 AM MST TOPICAL APPLICATION OF FLUORIDE VARNISH Routine 06/11/2021 8:00 AM MST PERIO MAINTENANCE Routine 06/11/2021 8:0 0 AM MST UR ANTIBACT IRR/QUAD Routine 06/11/2021 8:00 AM MST LR ANTIBACT IRR/QUAD Routine 06/11/2021 8:00 AM MST LL ANTIBACT IRR/QUAD Routine 06/11/2021 8:00 AM MST UL ANTIBACT IRR/QUAD Routine 06/11/2021 8:00 AM MST BITEWINGS - FOUR RADIOGRAPHIC IMAGES Routine 06/11/2021 8:00 AM MST PERIODIC ORAL EVALUATION - ESTABLISHED PATIENT Routine 06/11/2021 8:00 AM MST LL ANTIBACT IRR/QUAD Routine 12/11/2020 1:00 PM MST UL ANTIBACT IRR/QUAD Routine 12/11/2020 1:00 PM MST LR ANTIBACT IRR/QUAD Routine 12/11/2020 1:00 PM MST UR ANTIBACT IRR/QUAD Routine 12/11/2020 1:00 PM MST TOPICAL APPLICATION OF FLUORIDE VARNISH Routine 12/11/2020 1:00 PM MST PERIO MAINTENANCE Routine 12/11/2020 1:0 0 PM MST INTRAORAL PHOTO Routine 12/11/2020 12:00 PM MST INTRAORAL PHOTO Routine 12/11/2020 12:00 PM MST INTRAORAL PHOTO Routine 12/11/2020 12:00 PM MST INTRAORAL PHOTO Routine 12/11/2020 12:00 PM MST BITEWINGS - FOUR RADIOGRAPHIC IMAGES Routine 12/11/2020 12:00 PM MST ADDITIONAL X-RAY Routine 12/11/2020 12:0 0 PM MST ADDITIONAL X-RAY Routine 12/11/2020 12:0 0 PM MST ADDITIONAL X-RAY Routine 12/11/2020 12:0 0 PM MST ADDITIONAL X-RAY Routine 12/11/2020 12:0 0 PM MST ADDITIONAL X-RAY Routine 12/11/2020 12:0 0 PM MST SINGLE X-RAY Routine 12/11/2020 12:00 PM MST PERIODIC ORAL EVALUATION - ESTABLISHED PATIENT Routine 12/11/2020 12:00 PM MST PERIODIC ORAL EVALUATION - ESTABLISHED PATIENT Routine 04/17/2020 12:00 AM MST ORAL HYGIENE INSTRUCTIONS Routine 2019 12:00 AM MST 3 ML ARESTIN Routine 04/17/2020 12:00 AM MST LR GAYATRI DECON/QD Routine 04/17/2020 12:00 AM MST LL GAYATRI DECON/QD Routine 04/17/2020 12:00 AM MST UR GAYATRI DECON/QD Routine 04/17/2020 12:00 AM MST 3 UR PERIODONTAL SCALING AND ROOT PLANING - ONE TO THREE TEETH PER QUADRANT Routine 04/17/2020 12:00 AM MST 30 LR PERIODONTAL SCALING AND ROOT PLANING - ONE TO THREE TEETH PER QUADRANT Routine 04/17/2020 12:00 AM MST 19 LL PERIODONTAL SCALING AND ROOT PLANING - ONE TO THREE TEETH PER QUADRANT Routine 04/17/2020 12:00 AM MST UR ANTIBACT IRR/QUAD Routine 04/17/2020 12:00 AM MST LR ANTIBACT IRR/QUAD Routine 04/17/2020 12:00 AM MST LL ANTIBACT IRR/QUAD Routine 04/17/2020 12:00 AM MST TOPICAL APPLICATION OF FLUORIDE VARNISH Routine 04/17/2020 12:00 AM MST LOCAL ANESTHESIA IN CONJUNCTION WITH OPERATIVE OR SURGICAL PROCEDURES Routine 04/17/2020 12:00 AM MST 3 ENDODONTIC THERAPY, MOLAR TOOTH (EXCLUDING FINAL BAHAI) Routine 03/21/2020 2:00 AM CDT 3 CERECFIRED CROWNPOST Routine 0 2:00 AM CDT COMPREHENSIVE ORAL EVALUATION - NEW OR ESTABLISHED PATIENT Routine 03/21/2020 2:00 AM CDT PANORAMIC RADIOGRAPHIC IMAGE Routine 03/21/2020 2:00 AM CDT INTRAORAL - COMPREHENSIVE SERIES OF RADIOGRAPHIC IMAGES Routine 03/21/2020 2:00 AM CDT INTRAORAL PHOTO Routine 03/21/2020 2:00 AM CDT INTRAORAL PHOTO Routine 03/21/2020 2:00 AM CDT INTRAORAL PHOTO Routine 03/21/2020 2:00 AM CDT INTRAORAL PHOTO Routine 03/21/2020 2:00 AM CDT 14 MO COMPOSITE FILLING Routine 03/21/20 20 2:00 AM CDT 31 O COMPOSITE FILLING Routine 0 2:00 AM CDT 30 O COMPOSITE FILLING Routine 0 2:00 AM CDT 19 O COMPOSITE FILLING Routine 0 2:00 AM CDT 18 O COMPOSITE FILLING Routine 0 2:00 AM CDT 2 O COMPOSITE FILLING Routine 03/21/2020 2:00 AM CDT 19 MOD COMPOSITE FILLING Routine 020 2:00 AM CDT 20 DO COMPOSITE FILLING Routine 03/21/20 20 2:00 AM CDT 18 MO COMPOSITE FILLING Routine 03/21/20 20 2:00 AM CDT OFFICE VISIT FOR OBSERVATION (DURING REGULARLY SCHEDULED HOURS) - NO OTHER SERVICES PERFORMED Routine 08/02/2019 12:00 AM MST OCCLUSAL GUARD DELIVERY Routine 06/15/20 19 12:00 AM MST OFFICE VISIT FOR OBSERVATION (DURING REGULARLY SCHEDULED HOURS) - NO OTHER SERVICES PERFORMED Routine 06/15/2019 12:00 AM MST OCCLUSAL GUARD HARD APPLIANCE, FULL ARCH Routine 06/09/2019 12:00 AM MST OFFICE VISIT FOR OBSERVATION (DURING REGULARLY SCHEDULED HOURS) - NO OTHER SERVICES PERFORMED Routine 06/09/2019 12:00 AM MST LIMITED ORAL EVALUATION - PROBLEM FOCUSED Routine 06/02/2019 12:00 AM MST 3 ENDODONTIC THERAPY, MOLAR TOOTH (EXCLUDING FINAL BAHAI) Routine 06/02/2019 12:00 AM MST 3 PULP VITALITY TESTS Routine 06/02/2019 12:00 AM MST 3 CORE BUILDUP, INCLUDING ANY PINS WHEN REQUIRED Routine 06/02/2019 12:00 AM MST 3 RECEMENT CROWN Routine 06/02/2019 12:0 0 AM MST NC X-RAY Routine 06/02/2019 12:00 AM MST 3 CROWN Routine 06/02/2019 12:00 AM MST PERIODIC ORAL EVALUATION - ESTABLISHED PATIENT Routine 05/28/2019 12:00 AM MST ORAL HYGIENE INSTRUCTIONS Routine 2018 12:00 AM MST TOPICAL APPLICATION OF FLUORIDE VARNISH Routine 05/28/2019 12:00 AM MST PROPHYLAXIS - ADULT Routine 05/28/2019 1 2:00 AM MST NC X-RAY Routine 05/28/2019 12:00 AM MST BITEWINGS - FOUR RADIOGRAPHIC IMAGES Routine 05/28/2019 12:00 AM MST ADDITIONAL X-RAY Routine 05/28/2019 12:0 0 AM MST ADDITIONAL X-RAY Routine 05/28/2019 12:0 0 AM MST ADDITIONAL X-RAY Routine 05/28/2019 12:0 0 AM MST ADDITIONAL X-RAY Routine 05/28/2019 12:0 0 AM MST ADDITIONAL X-RAY Routine 05/28/2019 12:0 0 AM MST ADDITIONAL X-RAY Routine 05/28/2019 12:0 0 AM MST SINGLE X-RAY Routine 05/28/2019 12:00 AM MST 18 MO CEREC ONLAY Routine 05/28/2019 12: 00 AM MST PERIODIC ORAL EVALUATION - ESTABLISHED PATIENT Routine 11/27/2018 1:00 AM MST ORAL HYGIENE INSTRUCTIONS Routine 2018 1:00 AM MST TOPICAL APPLICATION OF FLUORIDE VARNISH Routine 11/27/2018 1:00 AM MST PROPHYLAXIS - ADULT Routine 11/27/2018 1 :00 AM MST PANORAMIC RADIOGRAPHIC IMAGE Routine 11/27/2018 1:00 AM MST BITEWINGS - FOUR RADIOGRAPHIC IMAGES Routine 11/27/2018 1:00 AM MST ORAL HYGIENE INSTRUCTIONS Routine 2017 12:00 AM MST PERIODIC ORAL EVALUATION - ESTABLISHED PATIENT Routine 06/04/2018 12:00 AM MST PERIO MAINTENANCE Routine 06/04/2018 12: 00 AM MST TOPICAL APPLICATION OF FLUORIDE VARNISH Routine 06/04/2018 12:00 AM MST BITEWINGS - FOUR RADIOGRAPHIC IMAGES Routine 06/04/2018 12:00 AM MST ADDITIONAL X-RAY Routine 06/04/2018 12:0 0 AM MST ADDITIONAL X-RAY Routine 06/04/2018 12:0 0 AM MST ADDITIONAL X-RAY Routine 06/04/2018 12:0 0 AM MST ADDITIONAL X-RAY Routine 06/04/2018 12:0 0 AM MST ADDITIONAL X-RAY Routine 06/04/2018 12:0 0 AM MST SINGLE X-RAY Routine 06/04/2018 12:00 AM MST PERIODIC ORAL EVALUATION - ESTABLISHED PATIENT Routine 10/27/2017 1:00 AM MST PERIO MAINTENANCE Routine 10/27/2017 1:0 0 AM MST ORAL HYGIENE INSTRUCTIONS Routine 2017 1:00 AM MST 1 GAYATRI DECON Routine 10/27/2017 1:00 AM MST TOPICAL APPLICATION OF FLUORIDE VARNISH Routine 10/27/2017 1:00 AM MST BITEWINGS - FOUR RADIOGRAPHIC IMAGES Routine 10/27/2017 1:00 AM MST PERIODIC ORAL EVALUATION - ESTABLISHED PATIENT Routine 04/14/2017 12:00 AM MST PERIO MAINTENANCE Routine 04/14/2017 12: 00 AM MST ORAL HYGIENE INSTRUCTIONS Routine 2016 12:00 AM MST TOPICAL APPLICATION OF FLUORIDE VARNISH Routine 04/14/2017 12:00 AM MST BITEWINGS - FOUR RADIOGRAPHIC IMAGES Routine 04/14/2017 12:00 AM MST ADDITIONAL X-RAY Routine 04/14/2017 12:0 0 AM MST ADDITIONAL X-RAY Routine 04/14/2017 12:0 0 AM MST ADDITIONAL X-RAY Routine 04/14/2017 12:0 0 AM MST ADDITIONAL X-RAY Routine 04/14/2017 12:0 0 AM MST ADDITIONAL X-RAY Routine 04/14/2017 12:0 0 AM MST SINGLE X-RAY Routine 04/14/2017 12:00 AM MST CANCELLED APPOINTMENT Routine 03/31/2017 12:00 AM [facility] [place] X-RAY Routine 09/03/2016 1:00 AM [facility] 3 MOL CEREC ONLAY Routine 09/03/2016 1:0 0 AM MST PERIODIC ORAL EVALUATION - ESTABLISHED PATIENT Routine 08/21/2016 12:00 AM MST PERIO MAINTENANCE Routine 08/21/2016 12: 00 AM MST ORAL HYGIENE INSTRUCTIONS Routine 2015 12:00 AM [facility] 1 GAYATRI DECON Routine 08/21/2016 12:00 AM MST TOPICAL APPLICATION OF FLUORIDE VARNISH Routine 08/21/2016 12:00 AM MST BITEWINGS - FOUR RADIOGRAPHIC IMAGES Routine 08/21/2016 12:00 AM MST ADDITIONAL X-RAY Routine 08/21/2016 12:0 0 AM MST ADDITIONAL X-RAY Routine 08/21/2016 12:0 0 AM MST ADDITIONAL X-RAY Routine 08/21/2016 12:0 0 AM MST ADDITIONAL X-RAY Routine 08/21/2016 12:0 0 AM MST ADDITIONAL X-RAY Routine 08/21/2016 12:0 0 AM MST SINGLE X-RAY Routine 08/21/2016 12:00 AM MST CANCELLED APPOINTMENT Routine 08/06/2016 12:00 AM MST PERIODIC ORAL EVALUATION - ESTABLISHED PATIENT Routine 01/31/2016 12:00 AM MST PERIO MAINTENANCE Routine 01/31/2016 12: 00 AM MST ORAL HYGIENE INSTRUCTIONS Routine 2015 12:00 AM MST BITEWINGS - FOUR RADIOGRAPHIC IMAGES Routine 01/31/2016 12:00 AM MST PERIO MAINTENANCE Routine 10/04/2015 1:0 0 AM MST ORAL HYGIENE INSTRUCTIONS Routine 2014 1:00 AM MST 1 GAYATRI DECON Routine 10/04/2015 1:00 AM MST TOPICAL APPLICATION OF FLUORIDE VARNISH Routine 10/04/2015 1:00 AM MST COMPREHENSIVE ORAL EVALUATION - NEW OR ESTABLISHED PATIENT Routine 07/18/2015 12:00 AM MST ORAL HYGIENE INSTRUCTIONS Routine 2014 12:00 AM MST ORAL HYGIENE INSTRUCTIONS Routine 2014 12:00 AM MST UL GAYATRI DECON/QD Routine 07/18/2015 12:00 AM MST 3 UR PERIODONTAL SCALING AND ROOT PLANING - ONE TO THREE TEETH PER QUADRANT Routine 07/18/2015 12:00 AM MST 14 UL PERIODONTAL SCALING AND ROOT PLANING - ONE TO THREE TEETH PER QUADRANT Routine 07/18/2015 12:00 AM MST 30 LR PERIODONTAL SCALING AND ROOT PLANING - ONE TO THREE TEETH PER QUADRANT Routine 07/18/2015 12:00 AM MST 19 LL PERIODONTAL SCALING AND ROOT PLANING - ONE TO THREE TEETH PER QUADRANT Routine 07/18/2015 12:00 AM MST UL ANTIBACT IRR/QUAD Routine 07/18/2015 12:00 AM MST TOPICAL APPLICATION OF FLUORIDE VARNISH Routine 07/18/2015 12:00 AM MST PROPHYLAXIS - ADULT Routine 07/18/2015 1 2:00 AM MST LOCAL ANESTHESIA IN CONJUNCTION WITH OPERATIVE OR SURGICAL PROCEDURES Routine 07/18/2015 12:00 AM MST PANORAMIC RADIOGRAPHIC IMAGE Routine 07/18/2015 12:00 AM MST INTRAORAL - COMPREHENSIVE SERIES OF RADIOGRAPHIC IMAGES Routine 07/18/2015 12:00 AM MST INTRAORAL PHOTO Routine 07/18/2015 12:00 AM MST INTRAORAL PHOTO Routine 07/18/2015 12:00 AM MST INTRAORAL PHOTO Routine 07/18/2015 12:00 AM MST INTRAORAL PHOTO Routine 07/18/2015 12:00 AM MST 19 MOD COMPOSITE FILLING Routine 015 12:00 AM MST 14 MO COMPOSITE FILLING Routine 07/18/20 15 12:00 AM MST 3 MO COMPOSITE FILLING Routine 5 12:00 AM MST 31 B COMPOSITE FILLING Routine 5 12:00 AM MST 30 B COMPOSITE FILLING Routine 5 12:00 AM MST 18 B COMPOSITE FILLING Routine 5 12:00 AM MST 2 O COMPOSITE FILLING Routine 07/18/2015 12:00 AM MST Visit Diagnoses Diagnosis Start Date Encounter for dental examination and cleaning without abnormal findings 01/12/2024 Dental caries, unspecified 07/27/2024 Encounter for dental examination and cleaning without abnormal findings 07/27/2024 Dental caries, unspecified 08/10/2024 Encounter for dental examination and cleaning without abnormal findings 04/14/2025 Insurance GUARDIAN PPO GUARDIAN PPO
--- OUTSIDE RECORDS SUMMARY | 2025-07-17 10:05 | XMS_ITS | Encounter Summary ---
Author Organization [facility] Address [address] [place] [address] Care Team Providers Care Dental Hygiene Teacher Name Role Phone Eren Castillo MD Primary Care Provider [phone] Encounter Details Date Type Department Care Team (Late st Contact Info) Description 03/28/1999 Outpatient Historical [facility] Pediatrics [address] [place] [address] Gautam Evans MD [address] [place] [address] Social History Tobacco Use Types Packs/Day Years Used Date Smoking Tobacco: Never Assessed Comments Unknown Sex and Gender Information Value Date Recorded Sex Assigned at Not on file Legal Sex Female 3:03 AM COOK RELIEF Gender Identity Not on file Sexual Orientation Not on file documented as of this encounter Plan of Treatment Not on file documented as of this encounter Visit Diagnoses Not on filedocumented in this encounter Care Teams Dental Hygiene Teacher Relationship Specialty Start Date End Date Eren Castillo MD [address] [facility] [address] [place] [address] PCP - General 04/27/07 documented as of this encounter
--- OUTSIDE RECORDS SUMMARY | 2025-07-17 10:05 | XMS_ITS | Clinical Summary ---
Author Organization [facility] Address [address] [place] [address] Care Team Providers Care Director Of Strategic Marketing Name Role Phone Eren Castillo MD Primary Care Provider [phone] Social History Tobacco Use Types Packs/Day Years Used Date Smoking Tobacco: Never Assessed Comments Unknown Sex and Gender Information Value Date Recorded Sex Assigned at Not on file Legal Sex Female 3:03 AM PROJECTION ENGINEER Gender Identity Not on file Sexual Orientation Not on file Plan of Treatment Health Maintenance Due Date Last Done Comments DTAP/TDAP/TD VACCINES (1 - Tdap) 02/12/2008 HEPATITIS B VACCINES (1 of 3 - 19+ 3-dose series) 01/19 HPV/Cotest (21-29) 2010 HPV VACCINES (1 - 3-dose SCDM series) 02/12/2016 CERVICAL CANCER SCREENING 2019 HPV/Cotest (30-65) 2019 PAP SMEAR 2019 INFLUENZA VACCINE (#1) 2025 Care Teams Director Of Strategic Marketing Relationship Specialty Start Date End Date Eren Castillo MD [address] [place] [address] [address], [place] [address] PCP - General 04/27/07
--- OUTSIDE RECORDS SUMMARY | 2025-07-17 10:05 | XMS_ITS | Encounter Summary ---
Author Organization [facility] Address [address] [place] [address] Care Team Providers Care Varnish Remover Name Role Phone Eren Castillo MD Primary Care Provider [phone] Encounter Details Date Type Department Care Team (Late st Contact Info) Description 04/07/2007 Outpatient Historical [facility] Pediatrics [address] [place] [address] Eren Castillo MD [address] [facility] [address], [place] [address] Social History Tobacco Use Types Packs/Day Years Used Date Smoking Tobacco: Never Assessed Comments Unknown Sex and Gender Information Value Date Recorded Sex Assigned at Not on file Legal Sex Female 3:03 AM TEXTILE COLORIST FORMULATOR Gender Identity Not on file Sexual Orientation Not on file documented as of this encounter Plan of Treatment Not on file documented as of this encounter Visit Diagnoses Not on filedocumented in this encounter Care Teams Varnish Remover Relationship Specialty Start Date End Date Eren Castillo MD [address] [facility] [address] [place] [address] PCP - General 04/27/07 documented as of this encounter
--- OUTSIDE RECORDS SUMMARY | 2025-07-17 10:05 | XMS_ITS | Encounter Summary ---
Author Organization [facility] Address [address] [place] [address] Care Team Providers Care Labor Relations Or Personnel Negotiator Name Role Phone Eren Castillo MD Primary Care Provider [phone] Encounter Details Date Type Department Care Team (Late st Contact Info) Description 08/03/1999 Outpatient Historical [facility] Pediatrics [address] [place] [address] Gautam Evans MD [address] [place] [address] Social History Tobacco Use Types Packs/Day Years Used Date Smoking Tobacco: Never Assessed Comments Unknown Sex and Gender Information Value Date Recorded Sex Assigned at Not on file Legal Sex Female 3:03 AM UTILITY AIRCREWMAN Gender Identity Not on file Sexual Orientation Not on file documented as of this encounter Plan of Treatment Not on file documented as of this encounter Visit Diagnoses Not on filedocumented in this encounter Care Teams Labor Relations Or Personnel Negotiator Relationship Specialty Start Date End Date Eren Castillo MD [address] [facility] [address] [place] [address] PCP - General 04/27/07 documented as of this encounter
--- OUTSIDE RECORDS SUMMARY | 2025-07-17 10:05 | XMS_ITS | Encounter Summary ---
Author Organization [facility] Address [address] [place] [address] Care Team Providers Care Wound Specialist Name Role Phone Eren Castillo MD Primary Care Provider [phone] Encounter Details Date Type Department Care Team (Late st Contact Info) Description 06/12/2006 Outpatient Historical [facility] Pediatrics [address] [place] [address] Eren Castillo MD [address] [facility] [address], [place] [address] Social History Tobacco Use Types Packs/Day Years Used Date Smoking Tobacco: Never Assessed Comments Unknown Sex and Gender Information Value Date Recorded Sex Assigned at Not on file Legal Sex Female 3:03 AM EQUAL EMPLOYMENT OPPORTUNITY OFFICER Gender Identity Not on file Sexual Orientation Not on file documented as of this encounter Plan of Treatment Not on file documented as of this encounter Visit Diagnoses Not on filedocumented in this encounter Care Teams Wound Specialist Relationship Specialty Start Date End Date Eren Castillo MD [address] [facility] [address] [place] [address] PCP - General 04/27/07 documented as of this encounter
--- OUTSIDE RECORDS SUMMARY | 2025-07-17 10:05 | XMS_ITS | Encounter Summary ---
Author Organization [facility] Address [address] [address] Care Team Providers Care Veterinary Medicine Doctor Name Role Phone Eren Castillo MD Primary Care Provider [phone] Encounter Details Date Type Department Care Team (Late st Contact Info) Description 05/20/2002 Outpatient Historical [facility] Pediatrics [address] [place] [address] Oscar Ann MD [address] [facility] [address] [place] [address] Social History Tobacco Use Types Packs/Day Years Used Date Smoking Tobacco: Never Assessed Comments Unknown Sex and Gender Information Value Date Recorded Sex Assigned at Not on file Legal Sex Female 3:03 AM SWIMMING TEACHER Gender Identity Not on file Sexual Orientation Not on file documented as of this encounter Plan of Treatment Not on file documented as of this encounter Visit Diagnoses Not on filedocumented in this encounter Care Teams Veterinary Medicine Doctor Relationship Specialty Start Date End Date Eren Castillo MD [address] [place] [address] [address] [place] [address] PCP - General 04/27/07 documented as of this encounter
--- OUTSIDE RECORDS SUMMARY | 2025-07-17 10:05 | XMS_ITS | Clinical Summary ---
Author Organization [facility] Address [address] [place] [address] Care Team Providers Care Life Trainer Name Role Phone Unavailable Primary Care Provider Unavailabl e Allergies No known active allergies Medications drospirenone-et hinyl estradioL (YOMI,OCELLA) 3-0.03 mg tablet 0 Active montelukast (SINGULAIR) 10 mg tablet 0 Active multivitamin-ir on-folic acid (CENTRUM/CERTAV IT) 18-400 mg-mcg tablet tablet Active methylPREDNISol one (MEDROL DOSPAK) 4 mg tablet follow package directions 2 Active ESTRADIOL ORAL Activ e loratadine 10 mg capsule 1 (one) time each day at the same time. Active amphetamine-dex troamphetamine XR (ADDERALL XR) 10 mg 24 hr capsule Take 10 mg by mouth 1 (one) time each day. 4 Active Jaimiess 0.15 mg-30 mcg (84)/10 mcg (7) tablets,dose pack,3 month tablet 4 Active doxycycline (VIBRAMYCIN) 100 mg capsule Activ e hydrocortisone 2.5 % ointment Activ e ipratropium (ATROVENT) 42 mcg (0.06 %) nasal spray USE 2 SPRAYS IN EACH NOSTRIL THREE TIMES DAILY FOR 3 DAYS NEEDED FOR CONGESTION Active tacrolimus (PROTOPIC) 0.1 % ointment Active chlorhexidine (PERIDEX) 0.12 % solution Use 15 mL in the mouth 2-3 times daily for 14 days. 473 mL 5 Active ibuprofen (ADVIL,MOTRIN) 600 mg tablet Take 1 (ONE) tablet (600 mg total) by mouth every 6 (six) hours if needed for mild pain for up to 30 doses. 30 tablet Active Active Problems Problem Noted Date Diagnosed Date Chronic ethmoidal sinusitis 04/14/2025 Chronic maxillary sinusitis 04/14/2025 Deviated nasal septum 04/14/2025 Nasal obstruction 04/14/2025 Periodontitis 07/28/2024 Closed nondisplaced fracture of fifth right meta tarsal bone 11/24/2023 Peroneal tendinitis of right lower extremity 02/2024 Attention deficit hyperactivity disorder 024 Generalized anxiety disorder 11/10/2023 Recurrent major depression 11/10/2023 Asthma 05/01/2021 Allergic rhinitis 11/20/2020 Hyperlipidemia 11/20/2020 Encounters Date Type Department Care Team Description 05/31/2025 10:00 AM [facility] Office Visit [facility] [address] [place] [address] Kori Cedeño DDS MS 05/20/2025 8:30 AM [facility] Office Visit [facility] [address], [address] [place] [address] Logan Jauregui DMD 04/21/2025 10:45 AM [facility] Office Visit [facility] [address] [place] [address] Logan Jauregui, ALIYA from Last 3 Months Immunizations Immunization Administration Dates Next Due Influenza, injectable, quadrivalent, preservativ e free 06/24/2020,09/01/2019 Influenza, live, intranasal, quadrivalent 2020 Influenza, split virus, trivalent, PF 08/22/2017 Social History Tobacco Use Types Packs/Day Years Used Date Smoking Tobacco: Never Smokeless Tobacco: Never Tobacco Cessation:Counseling Given: Not Answered Alcohol Use Standard Drinks/Week Comments Yes 0 (1 standard drink = 0.6 oz pur e alcohol) Comments Unknown Sex and Gender Information Value Date Recorded Sex Assigned at Not on file Legal Sex Female 9:46 AM [facility] Gender Identity Not on file Sexual Orientation Not on file Last Filed Vital Signs Vital Sign Reading Time Taken Comments Blood Pressure 123/79 04/21/2025 10:44 AM [facility] Pulse 110 04/21/2025 10:44 AM [facility] Temperature 36.2 C (97.2 F) 12/10/2021 8:19 AM [facility] Respiratory Rate - - Oxygen Saturation - - Inhaled Oxygen Concentration - - Weight 113 kg (250 lb) 12/10/2021 8:19 AM [facility] Height 182.9 cm (6') 12/10/2021 8:19 AM [facility] Body Mass Index 33.91 12/10/2021 8:19 AM [facility] Plan of Treatment Upcoming Encounters Date Type Department Care Team (Late st Contact Info) Description 07/27/2025 9:00 AM [facility] Office Visit [facility] [address] [place] [phone] Kori Cedeño DDS [place] [address] [place] [address] 08/18/2025 8:00 AM [facility] Office Visit [facility] [address], [address] [place] [phone] Janis Louis, [facility] [address] [place], [place] [id number] Health Maintenance Due Date Last Done Comments Orthodontic Progress Records 1989 Scaling and Root Planing 05/01/2022 020, 04/17/2020, 04/17/2020, Additional history exists Periodontal Maintenance 07/16/2025 04/14/20 25, 01/12/2025, 07/27/2024, Additional history exists Dental Oral Exam 10/15/2025 04/14/2025, 05/2024, 01/12/2024, Additional history exists Dental X-Ray: Bitewings 10/15/2025 04/14/2025 Clearance for Orthodontic Treatment 12/01/2025 05/31/2025 Dental X-Ray: Panoramic 12/02/2025 05/31/20, 12/16/2022, 12/10/2021, Additional history exists Dental CBCT 04/14/2028 04/14/2025, 12/16/2022 Dental X-Ray: Full Mouth 04/15/2028 025, 07/28/2024, 03/21/2020, Additional history exists Procedures Procedure Name Priority Date/Time Associated Diagnosis Comments ORAL HYGIENE INSTRUCTIONS Routine 2024 10:00 AM [facility] SPARK ADVANCED - DUAL ARCH Routine 05/31/2025 10:00 AM [facility] CASE PRESENTATION, DETAILED AND EXTENSIVE TREATMENT PLANNING Routine 05/31/2025 10:00 AM [facility] ORAL-B ESSENTIAL KIT Routine 05/31/2025 10:00 AM [facility] COMPREHENSIVE ORTHODONTIC TREATMENT OF THE ADULT DENTITION - 24M Routine 05/31/2025 10:00 AM [facility] 2D ORAL/FACIAL PHOTOGRAPHIC IMAGE OBTAINED INTRA-ORALLY OR EXTRA-ORALLY - INITIAL ORTHODONTIC VISIT Routine 05/31/2025 10:00 AM [facility] DIAGNOSTIC CASTS - INITIAL ORTHODONTIC VISIT Routine 05/31/2025 10:00 AM [facility] 2D CEPHALOMETRIC RADIOGRAPHIC IMAGE ACQUISITION, MEASUREMENT AND ANALYSIS - INITIAL ORTHODONTIC VISIT Routine 05/31/2025 10:00 AM [facility] PANORAMIC RADIOGRAPHIC IMAGE - INITIAL ORTHODONTIC VISIT Routine 05/31/2025 10:00 AM [facility] ORTHO CONSULT Routine 05/31/2025 10:00 AM [facility] RE-EVALUATION POST-OPERATIVE OFFICE VISIT Routine 05/20/2025 8:30 AM [facility] LIMITED ORAL EVALUATION - PROBLEM FOCUSED Routine 04/21/2025 10:45 AM [facility] 3 EXTRACTION, ERUPTED TOOTH REQUIRING REMOVAL OF BONE AND/OR SECTIONING OF TOOTH Routine 04/21/2025 10:45 AM [facility] 3 GUIDED TISSUE REGENERATION, NATURAL TEETH - RESORBABLE BARRIER, PER SITE Routine 04/21/2025 10:45 AM [facility] 3 BONE REPLACEMENT GRAFT FOR RIDGE PRESERVATION - PER SITE - MAXILLARY Routine 04/21/2025 10:45 AM [facility] [facility] CT IMAGE CAPTURE WITH FIELD OF VIEW OF BOTH JAWS; WITH OR WITHOUT CRANIUM Routine 04/14/2025 8:00 AM [facility] PERIODIC ORAL EVALUATION - ESTABLISHED PATIENT Routine 04/14/2025 8:00 AM [facility] Encounter for dental examination and cleaning without abnormal findings PERIO MAINTENANCE Routine 04/14/2025 8:0 0 AM MST PANORAMIC RADIOGRAPHIC IMAGE Routine 12/16/2022 8:30 AM [facility] 19 LL PERIODONTAL SCALING AND ROOT PLANING - ONE TO THREE TEETH PER QUADRANT Routine 04/17/2020 12:00 AM MST INTRAORAL - COMPREHENSIVE SERIES OF RADIOGRAPHIC IMAGES Routine 03/21/2020 2:00 AM CDT from Last 3 Months or Most Recently Relevant to Health Maintenance Insurance GUARDIAN PPO GUARDIAN PPO
--- OUTSIDE RECORDS SUMMARY | 2025-07-17 10:05 | XMS_ITS | Encounter Summary ---
Author Organization [facility] Address [address] [place] [address] Care Team Providers Care Fondant Puff Maker Name Role Phone Eren Castillo MD Primary Care Provider [phone] Encounter Details Date Type Department Care Team (Late st Contact Info) Description 05/27/2003 Outpatient Historical [facility] Pediatrics [address] [place] [address] Eren Castillo MD [address] [facility] [address], [place] [address] Social History Tobacco Use Types Packs/Day Years Used Date Smoking Tobacco: Never Assessed Comments Unknown Sex and Gender Information Value Date Recorded Sex Assigned at Not on file Legal Sex Female 3:03 AM HUMAN RELATIONS MANAGER Gender Identity Not on file Sexual Orientation Not on file documented as of this encounter Plan of Treatment Not on file documented as of this encounter Visit Diagnoses Not on filedocumented in this encounter Care Teams Fondant Puff Maker Relationship Specialty Start Date End Date Eren Castillo MD [address] [facility] [address] [place] [address] PCP - General 04/27/07 documented as of this encounter
--- OUTSIDE RECORDS SUMMARY | 2025-07-17 10:05 | XMS_ITS | Clinical Summary ---
Author Organization [facility] [employer] Address [address] [place] [address] Care Team Providers Care Correction Warden Name Role Phone Reynaldo Alfonso Primary Care Provider [phone] Source Comments [facility],non-owned Affiliates and Associated Physician Practices is amultiple site organization consisting of ambulatory clinics and hospital sitesin [place], [place], [place] and [place]. This disclosure is being madepursuant to the Care Everywhere program and may not contain all information available regarding this patient. Last updated 18.[facility] [employer] Allergies No known active allergies Medications * Be aware that medications may not be up to date on this document. Alwaysverify current medications with the patient. montelukast (Singulair) 10 MG tablet Take 1 (one) tablet by mouth once daily Active Loratadine 10 MG 1 (one) time each day at the same time. Active ipratropium (Atrovent) 0.06 % nasal spray USE 2 SPRAYS IN EACH NOSTRIL THREE TIMES DAILY FOR 3 DAYS NEEDED FOR CONGESTION Active levonorgestrel- ethinyl estradiol (Jaimiess) 0.15-0.03 &0.01 MG tablet 4 Active LORazepam (Ativan) 2 MG tablet TAKE BY MOUTH DIRECTED 90 MINUTES PRIOR TO OFFICE VISIT Active amphetamine-dex troamphetamine XR 24hr (Adderall XR) 10 MG capsule Take 1 capsule every day by oral route in the morning. 4 Active Ferrous Sulfate (IRON PO) Take by oral route. Active hydrocortisone (Hytone) 2.5 % ointment APPLY TO EYE LIDS TWICE DAILY FOR 2 WEEKS OUT OF THE MONTH Active tacrolimus (Protopic) 0.1 % ointment APPLY TOPICALLY TO RASH ON EYE LIDS TWICE DAILY Active Social History Tobacco Use Types Packs/Day Years Used Date Smoking Tobacco: Never Smokeless Tobacco: Never Tobacco Cessation:Counseling Given: Not Answered PHQ-2 Answer Date Recorded Patient Health Questionnaire-2 Score 0 05/27/2024 Comments No Sex and Gender Information Value Date Recorded Sex Assigned at Not on file Legal Sex Female 6:42 AM CDT Gender Identity Not on file Sexual Orientation Not on file Last Filed Vital Signs Vital Sign Reading Time Taken Comments Blood Pressure 124/88 05/27/2024 8:45 AM CDT Pulse 82 05/27/2024 8:45 AM CDT Temperature 37.3 C (99.1 F) 05/27/2024 8:45 AM CDT Respiratory Rate 18 05/27/2024 8:45 AM CDT Oxygen Saturation 99% 05/27/2024 8:45 AM CDT Inhaled Oxygen Concentration - - Weight 120.2 kg (265 lb) 05/27/2024 8:45 AM CDT Height 182.9 cm (6') 05/27/2024 8:45 AM CDT Body Mass Index 35.94 05/27/2024 8:45 AM CDT Plan of Treatment Health Maintenance Due Date Last Done Comments HIV SCREENING 02/12/2004 HEPATITIS C SCREENING 02/07/2007 DTAP/TDAP/TD VACCINES (1 - Tdap) 02/12/2008 HEPATITIS B VACCINE (1 of 3 - 19+ 3-dose series) 02/12/2008 PAP SMEAR 2010 HPV VACCINE (1 - 3-dose SCDM series) 02/12/2016 DEPRESSION SCREENING 10/20/2024 05/27/2024 COVID-19 VACCINE (3 - 2024- season) 2025 02/16/2021, 01/26/2021 INFLUENZA VACCINE (#1) 2025 , 06/24/2020, 09/01/2019, Additional history exists ZOSTER VACCINE (1 of 2) 2039 HIB VACCINE Aged Out No longer eligi ble based on patient's age to complete this topic MENINGOCOCCAL (Group B) VACCINE SHARED DECISION-MAKING Aged Out No longer eligible based on patient's age to complete this topic MENINGOCOCCAL GROUPS A/C/Y/W VACCINE Aged Out No longer eligible based on patient's age to complete this topic PNEUMOCOCCAL VACCINE Aged Out No long er eligible based on patient's age to complete this topic Insurance [employer] Care Teams Correction Warden Relationship Specialty Start Date End Date Reynaldo Alfonso [address] [phone] PCP - General 05/27/24
--- OUTSIDE RECORDS SUMMARY | 2025-07-17 10:05 | XMS_ITS | Encounter Summary ---
Author Organization [facility] Address [address] [place] [address] Care Team Providers Care Surveillance Sensor Officer Name Role Phone Eren Castillo MD Primary Care Provider [phone] Encounter Details Date Type Department Care Team (Late st Contact Info) Description 12/07/2003 Outpatient Historical [facility] Pediatrics [address] [place] [address] Eren Castillo MD [address] [facility] [address], [place] [address] Social History Tobacco Use Types Packs/Day Years Used Date Smoking Tobacco: Never Assessed Comments Unknown Sex and Gender Information Value Date Recorded Sex Assigned at Not on file Legal Sex Female 3:03 AM TELEHEALTH NURSE EDUCATOR Gender Identity Not on file Sexual Orientation Not on file documented as of this encounter Plan of Treatment Not on file documented as of this encounter Visit Diagnoses Not on filedocumented in this encounter Care Teams Surveillance Sensor Officer Relationship Specialty Start Date End Date Eren Castillo MD [address] [facility] [address] [place] [address] PCP - General 04/27/07 documented as of this encounter
--- OUTSIDE RECORDS SUMMARY | 2025-07-17 10:05 | XMS_ITS | Clinical Summary ---
Author Organization [facility] Address [address] [place] [address] Phone Care Team Providers Care Staffing And Scheduling Coordinator Name Role Phone Provider, Unknown Primary Care Provider Unavaila ble Allergies No known active allergies Medications montelukast (SINGULAIR) 10 MG Tablet 09/08/2020 Active Ale 3-0.03 MG Tablet TK 1 T PO D 07/29/2020 Active Active Problems No known active problems Social History Tobacco Use Types Packs/Day Years Used Date Smoking Tobacco: Never Smokeless Tobacco: Never Comments No Sex and Gender Information Value Date Recorded Sex Assigned at Not on file Legal Sex Female 7:38 PM CDT Gender Identity Not on file Sexual Orientation Not on file Last Filed Vital Signs Vital Sign Reading Time Taken Comments Blood Pressure 128/70 10/01/2020 5:36 PM JUVENILE JUSTICE OFFICER Pulse 89 10/01/2020 5:36 PM JUVENILE JUSTICE OFFICER Temperature 36.9 C (98.5 F) 10/01/2020 5:36 PM JUVENILE JUSTICE OFFICER Respiratory Rate 20 10/01/2020 5:36 PM JUVENILE JUSTICE OFFICER Oxygen Saturation 98% 10/01/2020 5:36 PM JUVENILE JUSTICE OFFICER Inhaled Oxygen Concentration - - Weight 104.3 kg (230 lb) 10/01/2020 5:36 PM JUVENILE JUSTICE OFFICER Height - - Body Mass Index - - Plan of Treatment Health Maintenance Due Date Last Done Comments Hepatitis C Virus (HCV) Screening 1989 TdaP Immunization 1989 Hepatitis B Immunization (1 of 3 - 19+ 3-dose series) 02/12/2008 Pap Smear 2010 Human Papillomavirus (HPV) Immunization (1 - 3-dose SCDM series) 02/12/2016 Cervical Cancer Screening (CCS) 2019 HPV/Cotest 2019 Influenza Immunization (#1) 2025 SARS-COV-2 Immunization ( - season) 2025 Respiratory Syncytial Virus (RSV) Immunization (Adult) (1 - 1-dose 75+ series) 02/12/2064 Meningococcal Immunization (ACWY) Aged Out No longer eligible based on patient's age to complete this topic Pneumococcal Immunization Combined Aged Out No longer eligible based on patient's age to complete this topic Rotavirus Immunization Aged Out No lo nger eligible based on patient's age to complete this topic Care Teams Staffing And Scheduling Coordinator Relationship Specialty Start Date End Date Provider, Unknown UNKNOWN PCP - General 10/01/20
--- OUTSIDE RECORDS SUMMARY | 2025-07-17 10:05 | XMS_ITS | Encounter Summary ---
Author Organization [facility] Address [address] [place] [address] Care Team Providers Care [place] Name Role Phone Eren Castillo MD Primary Care Provider [phone] Encounter Details Date Type Department Care Team (Late st Contact Info) Description 06/06/2000 Outpatient Historical [facility] Pediatrics [address] [place] [address] Gautam Evans MD [address] [place] [address] Social History Tobacco Use Types Packs/Day Years Used Date Smoking Tobacco: Never Assessed Comments Unknown Sex and Gender Information Value Date Recorded Sex Assigned at Not on file Legal Sex Female 3:03 AM FUNERAL PRE NEED CONSULTANT Gender Identity Not on file Sexual Orientation Not on file documented as of this encounter Plan of Treatment Not on file documented as of this encounter Visit Diagnoses Not on filedocumented in this encounter Care Teams [place] Relationship Specialty Start Date End Date Eren Castillo MD [address] [place] [address] [address] [place] [address] PCP - General 04/27/07 documented as of this encounter
--- OUTSIDE RECORDS SUMMARY | 2025-07-17 10:05 | XMS_ITS | Encounter Summary ---
Author Organization [facility] Address [address] [place] [address] Care Team Providers Care Water Fabricator Operator Name Role Phone Eren Castillo MD Primary Care Provider [phone] Encounter Details Date Type Department Care Team (Late st Contact Info) Description 09/28/2004 Outpatient Historical [facility] Pediatrics [address] [place] [address] Eren Castillo MD [address] 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 [address] [place] [address] PCP - General 04/27/07 documented as of this encounter
--- OUTSIDE RECORDS SUMMARY | 2025-07-17 10:05 | XMS_ITS | Encounter Summary ---
Author Organization [facility] Address [address] [place] [address] Care Team Providers Care Lay Out Drafter Name Role Phone Eren Castillo MD Primary Care Provider [phone] Encounter Details Date Type Department Care Team (Late st Contact Info) Description 2005 Outpatient Historical [facility] Pediatrics [address] [place] [address] Eren Castillo MD [address] 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 [address] [place] [address] PCP - General 04/27/07 documented as of this encounter
--- OUTSIDE RECORDS SUMMARY | 2025-07-17 10:05 | XMS_ITS | Encounter Summary ---
Author Organization [facility] Address [address] [place] [address] Care Team Providers Care Cellophane Casting Machine Repairer Name Role Phone Eren Castillo MD Primary Care Provider [phone] Encounter Details Date Type Department Care Team (Late st Contact Info) Description 04/20/2007 Outpatient Historical [facility] Pediatrics [address] [place] [address] Eren Castillo MD [address] 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 [address] [place] [address] PCP - General 04/27/07 documented as of this encounter
--- OUTSIDE RECORDS SUMMARY | 2025-07-17 10:05 | XMS_ITS | Encounter Summary ---
Author Organization [facility] Address [address] [place] [address] Care Team Providers Care Administration Manager Name Role Phone Eren Castillo MD Primary Care Provider [phone] Encounter Details Date Type Department Care Team (Late st Contact Info) Description 10/17/2000 Outpatient Historical [facility] Pediatrics [address] [place] [address] Gautam Evans MD [address] [place] [address] Social History Tobacco Use Types Packs/Day Years Used Date Smoking Tobacco: Never Assessed Comments Unknown Sex and Gender Information Value Date Recorded Sex Assigned at Not on file Legal 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
--- OUTSIDE RECORDS SUMMARY | 2025-07-17 10:05 | XMS_ITS | Encounter Summary ---
Author Organization [facility] Address [address] [place] [address] Care Team Providers Care Soil Technologist Name Role Phone Eren Castillo MD Primary Care Provider [phone] Encounter Details Date Type Department Care Team (Late st Contact Info) Description 10/11/1998 Outpatient Historical [facility] Pediatrics [address] [place] [address] Gautam Evans MD [address] [place] [address] Social History Tobacco Use Types Packs/Day Years Used Date Smoking Tobacco: Never Assessed Comments Unknown Sex and Gender Information Value Date Recorded Sex Assigned at Not on file Legal Sex Female 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
--- OUTSIDE RECORDS SUMMARY | 2025-07-17 10:05 | XMS_ITS | Encounter Summary ---
Author Organization [facility] Address [address] [place] [address] Care Team Providers Care Fisher Lampara Net Name Role Phone Eren Castillo MD Primary Care Provider [phone] Encounter Details Date Type Department Care Team (Late st Contact Info) Description 09/18/2001 Outpatient Historical [facility] Pediatrics [address] [place] [address] Gautam Evans MD [address] [place] [address] Social History Tobacco Use Types Packs/Day Years Used Date Smoking Tobacco: Never Assessed Comments Unknown Sex and Gender Information Value Date Recorded Sex Assigned at Not on file 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
--- OUTSIDE RECORDS SUMMARY | 2025-07-17 10:05 | XMS_ITS | Encounter Summary ---
Author Organization [facility] Address 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 [place] [address] [place] [address] PCP - General 04/27/07 documented as of this encounter
--- NOTE | 2025-07-17 10:07 | ED_ITS ---
HPI - Ear Problem General Chief complaint: Ear Stated complaint: Ear Pain Time Seen by Provider: 07/17/25 10:08 Source: patient Mode of arrival: ambulatory Limitations: no limitations History of Present Illness HPI Narrative: 35 y/o female presented for c/o bilateral ear pressure. Onset today. Endorses the last 5 days she has had nasal congestion and drainage and mild cough. Not taking anything. Says the last time she had Covid medicine did not help symptoms. Denies tinnitus, dizziness, n/v/d/f/c. MD Complaint: ear pain Related Data Home Medications ?Medication ?Instructions ?Recorded ?Confirmed ?Last Taken ?Type Zyrtec 07/17/25 Unknown History Allergies Allergy/AdvReac Type Severity Reaction Status Date / Time No Known Allergies Allergy Verified 07/17/25 10:08 Review of Systems Review of Systems: CONSTITUTIONAL: Denies malaise, chills, or fever. EYES: Denies visual changes, redness, or discharge. ENT: Denies congestion, sinus pain, and sore throat. Reports ear pain, rhinorrhea CARDIOVASCULAR: Denies chest pain, palpitations, or edema. RESPIRATORY: Denies cough or dyspnea. GASTROINTESTINAL: Denies abdominal pain, nausea, vomiting, diarrhea NEUROLOGIC: Denies headache. All systems reviewed & are unremarkable except as noted in HPI and below PMFSH Past Medical History Medical History Allergies Right shoulder pain Sinusitis Surgical History Surgical History History of arthroscopic surgery of shoulder RT History of exploratory laparotomy S/P wisdom tooth extraction Family History Family History Father Hypertension Malignant neoplasm of prostate Heart disease Mother Alive and well Breast cancer Grandparent Hypertension Heart disease Social History Social History Smoking status: Never smoker Tobacco type: cigarettes Second hand tobacco smoke exposure: No Alcohol intake: current Substance use: never Living arrangements: with family Occupation/Education: occupation Gender identity (if verbalized by the patient): Female Comments At time of signature, agree with nursing past medical, surgical, social and family history. There is no relevant family history pertinent to the presenting complaint Exam Narrative: GENERAL: Well-appearing EYES: PERRLA, conjunctivae clear ENT: Nares clear. Mucous membranes moist. Left TM erythematous, intact; canal not erythematous, no drainage, no tragal tenderness. NECK: Supple. No lymphadenopathy CHEST: Clear to auscultation, breath sounds equal. HEART: Regular rate and rhythm. No murmur heard. SKIN: Warm, dry, no rash. NEURO: Alert and oriented x3. PSYCH: Normal mood and affect Course Course Emergency Course: Patient is aware of diagnosis, understands and agrees to treatment plan. Anticipatory guidance given. Patient agrees to follow-up as directed and is aware of reasons to seek care at the emergency department. Portions of this record may have been created with voice recognition software Level of Care: Express Care Visit Vital Signs Vital signs: Reviewed Medical Decision Making MDM Narrative Medical decision making narrative: discussed physical exam findings consistent with left AOM, Advised supportive measures and signs/symptoms to go to the ER. Patient is appropriate for outpatient treatment and follow-up. Differential Diagnosis Differential Diagnosis: Coronavirus, strep pharyngitis, allergic rhinitis, upper respiratory tract infection, sinusitis, rhinosinusitis, nasopharyngitis, viral pharyngitis, otitis media, otitis externa, eustachian tube dysfunction, foreign body, cerumen impaction. Discharge Plan Discharge Clinical Impression: Otitis media Qualifiers: Otitis media type: suppurative Chronicity: acute Laterality: left Recurrence: non-recurrent Spontaneous tympanic membrane rupture: without spontaneous rupture Qualified Code(s): H66.002 - Acute suppurative otitis media without spontaneous rupture of ear drum, left ear Patient Disposition: Home Condition: Stable Instructions: Antibiotic Form, Ear Infection (ED) Additional Instructions: Take antibiotics as directed. Recommendations: continue antihistamine such as Benadryl, Zyrtec, Claritin or Starla for sinus congestion Flonase nasal spray, 1 spray in each nostril once daily until symptoms improve Tylenol 1000mg every 8 hours as needed to reduce fever, pain Please schedule a follow-up visit with your personal physician for further evaluation and treatment within 3-5days. If your symptoms persist, change or worsen significantly, go to the emergency department for further evaluation. Patient Language: Danish Prescriptions: New amoxicillin-pot clavulanate 875-125 mg tablet 1 tablet PO Q12H 7 Days Qty: 14 0RF No Action Zyrtec loratadine [Claritin] 10 mg tablet 10 mg PO DAILY 60 Days Qty: 60 0RF Follow-up/Referrals: UNKNOWN,DOCTOR [Primary Care Provider] Time of Disposition: 10:15
== END 2025-07-17 10:19 | disposition home or self-care (01) ==
PROVIDERS: Emergency Provider Nurse Practitioner Family
DX: H66.002 Acute suppurative otitis media without spontaneous rupture of ear drum, left ear (principal)
CPT/HCPCS: 99213; G0463

== ENCOUNTER 2025-09-14 11:03 | Outpatient (CLI) | payer OTHER, SELFPAY ==
--- NOTE | ~2025-09-14 | MR_ITS ---
EXAMINATION: MR foot RT wo con DATE: 09/14/2025 11:37 INDICATION: Right foot stress fracture TECHNIQUE: Magnetic resonance imaging (MRI) of the right fore/mid foot was performed without intravenous contrast. Sequences included sagittal T1-weighted FSE, sagittal fluid sensitive FSE STIR, coronal PD-weighted FS FSE, coronal T1- weighted FSE, axial PD-weighted FS FSE, and axial PD-weighted FSE. COMPARISON: None FINDINGS: Bone alignment is normal. Typical pattern of mild polyarticular osteoarthritis at the first metatarsophalangeal, the naviculocuneiform and several tarsal metatarsal and interphalangeal joints. Minimal subarticular edema-like signal change at the base of the first proximal phalanx, first metatarsal and at the proximal aspect of the medial cuneiform. No erosions. There is otherwise normal marrow signal throughout with no stress reaction, fracture or pathologic marrow replacing process. The Lisfranc ligament complex along with the collateral ligament complex at the metatarsophalangeal and interphalangeal joints are normal. The visualized portions of the flexor and extensor tendons are normal. Intrinsic musculature of the foot is unremarkable. No joint effusions or other abnormal fluid collections. IMPRESSION: 1. 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 No stress reaction/fracture. Reviewed, dictated and finalized at location A. IFIED INCOME TAX PREPARER IMPRESSION: 1. 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 No stress r eaction/fracture.
== END 2025-09-14 11:04 | disposition home or self-care (01) ==
PROVIDERS: PCP Podiatrist Foot & Ankle Surgery; Visit Provider Podiatrist Foot & Ankle Surgery
DX: M19.071 Primary osteoarthritis, right ankle and foot (principal); M84.374K Stress fracture, right foot, subsequent encounter for fracture with nonunion
CPT/HCPCS: 73718